=== PATIENT | male | born 1970 ===

== ENCOUNTER → 2020-12-27 13:40 | Outpatient (BNVA) | payer OTHER, SELFPAY | PROVIDERS: PCP Internal Medicine; Visit Provider Urology ==

== ENCOUNTER 2023-11-11 10:50 | Outpatient (REF) | payer OTHER, SELFPAY ==
[2023-11-11 13:37] LABS: Hematocrit 44.3 % (42.0-52.0); Mean Corpuscular HGB Conc 33.9 g/dl (31.0-36.0); Mean Corpuscular Hemoglobin 32.3 pg (27.0-33.0); Mean Corpuscular Volume 95.3 fL (80.0-98.0); Mean Platelet Volume 11.3 fL (9.4-12.4); Platelet Count 178 X10*3/uL (160-400); Red Blood Count 4.65 X10*6/uL (4.60-5.80); White Blood Count 9.6 X10*3/uL (4.8-10.8)
[2023-11-16 09:18] LABS: Testosterone, Free 17.7 pg/mL (35.0-155.0); Testosterone, Total 157 ng/dL (250-1100)
== END 2023-11-11 10:51 | disposition home or self-care (01) ==
LOC: HO.HMGCLDS 10:50
PROVIDERS: PCP Internal Medicine; Visit Provider Urology
DX: E29.1 Testicular hypofunction (principal)
CPT/HCPCS: 36415; 84153; 84402; 84403; 85027

== ENCOUNTER 2023-11-18 10:38 | Outpatient (AMB) | payer OTHER, SELFPAY ==
--- NOTE | 2023-11-18 10:40 | MHC.OFFVIS ---
Intake Intake Visit Reasons: LABS Follow Up(set)Confirmed Intake Note: Patient is Present for Telephone Follow Up labs Urology Med: Testosterone Antibiotic Allergy: None Blood Thinner: None Confirmed Pharmacy: [facility] Allergies No Known Allergies [No Known Allergies*] Allergy (Verified 11/18/23 10:41) Medication List - Last Reconciled 11/18/23 by Ean Davis MD insulin syringe-needle U-100 (BD Insulin Syringe) As directed weekly needle (disp) 18 G (BD Regular Bevel Boomer) As directed needle (disp) 18 G (BD Regular Bevel Boomer) To draw up medication needle (disp) 22 G For testosterone injection weekly needle (disp) 22 G For testosterone injection weekly syringe (disposable) (BD Luer-Ophelia Syringe) Testosterone injection weekly syringe (disposable) (BD Luer-Ophelia Syringe) Testosterone injection weekly testosterone cypionate (Depo-Testosterone) 80 mg (0.4 mL) subcut QWEEK 4 weeks HPI HPI Comments History of Present Illness Details Migue Blanca is a very pleasant male. They are a patient of Dr Valero. They are seen in the office today for the following urologic conditions. - hypogonadism Telemedicine Evaluation 15 min Consultation [employer] [place] Video Refills provided Six-month follow-up Six-month follow-up On subcutaneous testosterone 11/15 T 157, P 0.5 44 Hypogonadism: 80 units weekly subq Testicular cancer 2013 Lab stable when he continues to use medication. 40 units per week. He presents today for further evaluation and followup of his hypogonadism. Initial symptoms include erectile dysfunction Yes decreased libido Yes change in mood/depression Yes in muscle size/strength Yes increased fatigue/malaise Yes increased abdominal fat No tender breasts/gynecomastia No hair loss No osteopenia No The onset of symptoms has been gradual. Associate conditions include obstructive sleep apnea No CAD No obesity No stress - financial, family, employment No heavy alcohol or illicit drug use No Laboratory results baseline 08/08 T 125, free testosterone, 36 after stim - T 340, , calculated bioavailable testosterone L 77, , SHBG 78 10/09 on clomid , testosterone 274, SHBG 101 03/09 on T 0.25 , testosterone 297, , SHBG 50, low free T 05/09 on 0.3cc BIW - T 631 10/10 T 621 PSA 0.7, Hct 59 04/09 T 90 12/09 T 245, 12/10 T 77, PSA 0.3 Current therapy includes 10/09 SERM - clomiphene - could not afford but worked 11/10 , injectable exogenous testosterone. Response to therapy has been improved. Diagnosis based on history and laboratory results Hypogonadotrophic Hypogonadism. Risk, benefits and alternatives to therapy were discussed regarding the use and timing of prescribed medications. Pertinent side effects and interactions for medications were highlighted and adherence emphasized [facility] Medical History Erectile dysfunction due to arterial insufficiency Hypogonadism in male Seminoma of descended testis Testicular cancer Surgical History S/P orchiectomy Review of Systems Const All systems reviewed & are unremarkable except as noted in HPI and below Reports no additional complaints Resp Reports no additional complaints GI Reports no additional complaints Reports as per HPI Musc Reports no additional complaints Physical Exam Telemedicine evaluation Appropriate responses Regular breathing rate and rhythm HEENT Head: Yes normal to inspection Ears: hearing grossly normal bilaterally Eyes General: appearance normal, both eyes and all related structures Neck Neck: Yes normal visual inspection Chest Chest palpation & inspection: normal inspection of the chest Resp Effort & Inspection: normal respiratory effort and able to speak in complete sentences Assessment & Plan Assessment & Plan (1) Hypogonadism in male: Code(s): E29.1 - Testicular hypofunction Plan Six month follow-up labs Medications: New syringe (disposable) (BD Luer-Ophelia Syringe) Testosterone injection weekly 30 ea 0RF E29.1 - Testicular hypofunction, E34.9 - Endocrine disorder, unspecified needle (disp) 18 G (BD Regular Bevel Boomer) As directed 30 ea 0RF E29.1 - Testicular hypofunction needle (disp) 18 G (BD Regular Bevel Boomer) To draw up medication 30 ea 0RF E29.1 - Testicular hypofunction needle (disp) 22 G For testosterone injection weekly 30 ea 0RF E29.1 - Testicular hypofunction, E34.9 - Endocrine disorder, unspecified needle (disp) 22 G For testosterone injection weekly 30 ea 0RF E29.1 - Testicular hypofunction, E34.9 - Endocrine disorder, unspecified syringe (disposable) (BD Luer-Ophelia Syringe) Testosterone injection weekly 30 ea 0RF E29.1 - Testicular hypofunction, E34.9 - Endocrine disorder, unspecified Refilled testosterone cypionate (Depo-Testosterone) dispose of bottle after single use 80 mg (0.4 mL) subcut QWEEK 4 weeks 4 mL 5RF [id number] Patient Instructions: Imaging studies, laboratory and physical exam results were discussed and reviewed in detail. No major barriers to patient understanding were identified. An opportunity to ask questions regarding the treatment plan was provided. All questions were answered. The patient expressed understanding and agreement with the above treatment plan. The patient is aware they should contact our office by phone for worsening of their current condition or the appearance of new urologic symptoms. Compliance is encouraged with any medications and followup testing that is ordered. It is a privilege to participate in the urologic care of your patient. If you have any questions or concerns regarding treatment for the above conditions, or other urologic issues, please do not hesitate to contact me. The office telephone contact is [phone]. This note is constructed using voice recognition software. While every effort has been made to ensure accuracy head of ethics and compliance errors may have been included. Yours sincerely, Dr Ean Davis MD, [facility] - Urology Providers of Expert, Compassionate Care for the Genitourinary System Telehealth Telehealth Location of provider rendering services: practice address Location of patient: address on file Patient Identification confirmed using: Name, : Yes Telehealth method: video Patient verbally consented to treatment: Yes Patient verbally consented to billing insurance company: Yes Patient informed of any privacy concerns related to visit: Yes Coding Level of Care Code Tele Est Pt Level 3 (28865) Diagnoses Hypogonadism in male E29.1
== END 2023-11-18 11:41 | disposition home or self-care (01) ==
LOC: HO.HUSH 10:39
PROVIDERS: PCP Internal Medicine; Visit Provider Urology
DX: E29.1 Testicular hypofunction (principal)
CPT/HCPCS: 99213

== ENCOUNTER → 2023-11-18 10:38 | Outpatient (BNVA) | payer OTHER, SELFPAY | PROVIDERS: PCP Internal Medicine; Visit Provider Urology ==

== ENCOUNTER 2024-06-17 10:45 | Outpatient (REF) | payer OTHER, SELFPAY ==
[2024-06-17 13:11] LABS: PSA,Total (Free>4and<10) 1.04 ng/mL (0.00-4.00)
[2024-06-21 21:29] LABS: Testosterone, Free 20.8 pg/mL (35.0-155.0); Testosterone, Total 302 ng/dL (250-1100)
== END 2024-06-17 10:46 | disposition home or self-care (01) ==
LOC: HO.LAB 10:45
PROVIDERS: PCP Internal Medicine; Visit Provider Urology
DX: E29.1 Testicular hypofunction (principal); Z12.5 Encounter for screening for malignant neoplasm of prostate
CPT/HCPCS: 36415; 84153; 84402; 84403

== ENCOUNTER 2024-06-23 09:19 | Outpatient (AMB) | payer OTHER, SELFPAY ==
--- NOTE | 2024-06-23 09:22 | A.OFFVIS_ITS ---
Intake Visit Reasons: PSA/Testosterone Follow Up(Testo Pending) Intake Note: Patient is present for PSA/TESOSTERONE F/U Urology Medication:TESTOSTERONE Antibiotic Allergy:NONE Blood Thinner:NONE Strap Buckler Machine Required: No Allergies No Known Allergies [No Known Allergies*] Allergy (Verified 06/23/24 09:23) Medication List - Last Reconciled 06/23/24 by Ean Davis MD insulin syringe-needle U-100 (BD Insulin Syringe) As directed weekly needle (disp) 18 G (BD Regular Bevel Pomona) As directed needle (disp) 18 G (BD Regular Bevel Pomona) To draw up medication needle (disp) 22 G For testosterone injection weekly needle (disp) 22 G For testosterone injection weekly safety needles (BD SafetyGlide Needle) As directed syringe (disposable) (BD Luer-Ophelia Syringe) Testosterone injection weekly syringe (disposable) (BD Luer-Ophelia Syringe) Testosterone injection weekly testosterone cypionate (Depo-Testosterone) 80 mg (0.4 mL) subcut QWEEK 4 weeks HPI Comments Details: Migue Blanca is a very pleasant male. They are a patient of Dr Valero. They are seen in the office today for the following urologic conditions. - hypogonadism Six-month follow-up On subcutaneous testosterone 11/15 T 157, P 0.5 44, 06/15 300 Refill medications Six-month follow-up Hypogonadism: 80 units weekly subq Testicular cancer 2014 Lab stable when he continues to use medication. 40 units per week. He presents today for further evaluation and followup of his hypogonadism. Initial symptoms include erectile dysfunction Yes decreased libido Yes change in mood/depression Yes in muscle size/strength Yes increased fatigue/malaise Yes increased abdominal fat No tender breasts/gynecomastia No hair loss No osteopenia No The onset of symptoms has been gradual. Associate conditions include obstructive sleep apnea No CAD No obesity No stress - financial, family, employment No heavy alcohol or illicit drug use No Laboratory results baseline 08/08 T 125, free testosterone, 36 after stim - T 340, , calculated bioavailable testosterone L 77, , SHBG 78 10/09 on clomid , testosterone 274, SHBG 101 03/09 on T 0.25 , testosterone 297, , SHBG 50, low free T 05/09 on 0.3cc BIW - T 631 10/10 T 621 PSA 0.7, Hct 59 04/09 T 90 12/09 T 245, 12/10 T 77, PSA 0.3 Current therapy includes 10/09 SERM - clomiphene - could not afford but worked 11/10 , injectable exogenous testosterone. Response to therapy has been improved. Diagnosis based on history and laboratory results Hypogonadotrophic Hypogonadism. Risk, benefits and alternatives to therapy were discussed regarding the use and timing of prescribed medications. Pertinent side effects and interactions for medications were highlighted and adherence emphasized [facility] Medical History Erectile dysfunction due to arterial insufficiency Hypogonadism in male Seminoma of descended testis Testicular cancer Surgical History S/P orchiectomy Review of Systems Const Denies chills and Denies fever(s) Card Reports no additional complaints and Denies syncope Resp Denies cough GI Denies abdominal pain and Denies heartburn Reports as per HPI and Denies change in libido Neuro Denies syncope Psych Denies change in libido Endo Denies change in libido Physical Exam Const General: cooperative, healthy appearing, comfortable and no acute distress Orientation/consciousness: patient oriented x3 HEENT Face and sinus: Yes normal facial exam Mouth: moist mucous membranes Neck Neck: Yes normal visual inspection, Yes full ROM and Yes trachea midline Chest Chest palpation & inspection: normal inspection of the chest Resp Effort & Inspection: normal respiratory effort, able to speak in complete sentences and no respiratory distress GI Inspection: Yes normal to inspection Back/Spine/Pelvis Cervical Spine: normal cervical lordosis Thoracic/Lumbar Spine: thoracic and lumbar spine normal to inspection Skin General skin exam: no rashes or lesions noted Neuro General: patient oriented x3, gait normal, tone normal and moves all extremities Extrem General: Yes normal to inspection and Yes capillary refill normal Assessment & Plan Assessment & Plan (1) Hypogonadism in male: Code(s): E29.1 - Testicular hypofunction Category: Medical (2) Erectile dysfunction due to arterial insufficiency: Code(s): N52.01 - Erectile dysfunction due to arterial insufficiency Category: Medical Plan Six-month follow-up lab work Orders: Orders Prostate Specific Antigen 6 Months E29.1 - Testicular hypofunction Testosterone, Total 6 Months E29.1 - Testicular hypofunction Complete Blood Count no Diff 6 Months E29.1 - Testicular hypofunction Patient Instructions: Imaging studies, laboratory and physical exam results were discussed and reviewed in detail. No major barriers to patient understanding were identified. An opportunity to ask questions regarding the treatment plan was provided. All questions were answered. The patient expressed understanding and agreement with the above treatment plan. The patient is aware they should contact our office by phone for worsening of their current condition or the appearance of new urologic symptoms. Compliance is encouraged with any medications and followup testing that is ordered. It is a privilege to participate in the urologic care of your patient. If you have any questions or concerns regarding treatment for the above conditions, or other urologic issues, please do not hesitate to contact me. The office telephone contact is [phone]. This note is constructed using voice recognition software. While every effort has been made to ensure accuracy acoustical installer errors may have been included. Yours sincerely, Dr Ean Davis MD, [facility] - Urology Providers of Expert, Compassionate Care for the Genitourinary System Coding Level of Care Code Est Pt Level 3 (00930) Diagnoses Hypogonadism in male E29.1 Erectile dysfunction due to arterial insufficiency N52.01
== END 2024-06-23 09:55 | disposition home or self-care (01) ==
LOC: HO.HUSH 09:19
PROVIDERS: PCP Internal Medicine; Visit Provider Urology
DX: E29.1 Testicular hypofunction (principal); N52.01 Erectile dysfunction due to arterial insufficiency
CPT/HCPCS: 99213

== ENCOUNTER → 2024-06-23 09:19 | Outpatient (BNVA) | payer OTHER, SELFPAY | PROVIDERS: PCP Internal Medicine; Visit Provider Urology | DX: E29.1 Testicular hypofunction (principal); N52.01 Erectile dysfunction due to arterial insufficiency | CPT/HCPCS: 99212 ==

== ENCOUNTER 2024-12-20 12:52 | Outpatient (REF) | payer OTHER, SELFPAY ==
[2024-12-20 13:12] LABS: Hematocrit 47.7 % (42.0-52.0); Hemoglobin 15.8 g/dl (14.0-18.0); Mean Corpuscular HGB Conc 33.1 g/dl (31.0-36.0); Mean Corpuscular Hemoglobin 31.7 pg (27.0-33.0); Mean Corpuscular Volume 95.6 fL (80.0-98.0); Mean Platelet Volume 10.6 fL (9.4-12.4); Platelet Count 190 X10*3/uL (160-400); Red Blood Count 4.99 X10*6/uL (4.60-5.80); Red Cell Distribution Width 13.5 % (11.0-16.0); White Blood Count 7.6 X10*3/uL (4.8-10.8)
--- OUTSIDE RECORDS SUMMARY | 2024-12-20 14:26 | XMS_ITS | Clinical Summary ---
Author Organization [facility] Address [address] [place] [address] [address] [place] [address] Care Team Providers Care Engine Dynamometer Tester Name Role Phone Unavailable Primary Care Provider Unavailabl e Allergies No known active allergies Medications ibuprofen 600 MG tabletIndication s:Dental abscess Take 1 tablet (600 mg) by mouth every 6 (six) hours if needed for mild pain for up to 20 doses. 20 tablet 04/14/2024 Active Active Problems No known active problems Social History Tobacco Use Types Packs/Day Years Used Date Smoking Tobacco: Every Day Cigarettes Smokeless Tobacco: Never Tobacco Cessation:Ready to Q uit: Not Asked; Counseling Given: Not Answered Alcohol Use Standard Drinks/Week Comments Never 0 (1 standard drink = 0.6 oz pur e alcohol) Sex and Gender Information Value Date Recorded Sex Assigned at Male 07/22/2022 10:14 AM EDT Legal Sex Male 10:14 AM EDT Gender Identity Male 07/22/2022 10:14 AM EDT Sexual Orientation Straight 07/22/2022 10 :14 AM EDT Last Filed Vital Signs Vital Sign Reading Time Taken Comments Blood Pressure 90/60 05/07/2024 8:06 AM EDT Pulse - - Temperature - - Respiratory Rate - - Oxygen Saturation - - Inhaled Oxygen Concentration - - Weight - - Height - - Body Mass Index - - Plan of Treatment Health Maintenance Due Date Last Done Comments CT Colonography 1969 Colonoscopy 1969 Colorectal Cancer Screening 1969 Dental Prophylaxis 1969 Dental X-Ray: Bitewings 1969 Depression Screening 1969 FIT DNA/Cologuard 1969 FIT 1969 FOBT 1969 HIV Screening 1969 Lipid Panel 1969 SDOH Screening 1969 Sigmoidoscopy 1969 Pneumococcal Vaccine: Pediatrics (0 to 5 Years) and At-Risk Patients (6 to 49) Years) (1 of 2 - PCV) 1975 Alcohol/Substance Use Screening 1981 Hepatitis C Screening 1987 Hepatitis B Vaccines (1 of 3 - 19+ 3-dose series) 01/24/1988 Pneumococcal Vaccine: 50+ Years (1 of 2 - PCV) 01/24/1988 Zoster Vaccines (1 of 2) 2019 COVID-19 Vaccine (2 - 2023-2 5 season) 2024 03/19/2021 Influenza Vaccine (#1) 2024 DTaP/Tdap/Td Vaccines (2 - T d or Tdap) 06/07/2024 06/07/2014 Dental Oral Exam 10/16/2024 04/14/2024 Tobacco Screening 05/07/2025 05/07/2024 Dental X-Ray: Full Mouth 04/15/2027 024, 04/13/2018 RSV Patients and Patients Aged 60 years or older (1 - 1-dose 75+ series) 01/24/2044 HIB Vaccines Aged Out No longer eligi ble based on patient's age to complete this topic HPV Vaccines Aged Out No longer eligi ble based on patient's age to complete this topic Hepatitis A Vaccines Aged Out No long er eligible based on patient's age to complete this topic IPV Vaccines Aged Out No longer eligi ble based on patient's age to complete this topic Meningococcal Vaccine Aged Out No terese david eligible based on patient's age to complete this topic RSV under 20 months Aged Out No longe r eligible based on patient's age to complete this topic Rotavirus Vaccines Aged Out No longer eligible based on patient's age to complete this topic Procedures Procedure Name Priority Date/Time Associated Diagnosis Comments PANORAMIC RADIOGRAPHIC IMAGE Routine 04/14/2024 11:30 AM EDT Periodontal disease Dental abscess Severe dental caries COMPREHENSIVE ORAL EVALUATION - NEW OR ESTABLISHED PATIENT Routine 04/14/2024 11:30 AM EDT Periodontal disease Dental abscess Severe dental caries from Last 3 Months or Most Recently Relevant to Health Maintenance Insurance [facility] MEDICAID STAND ADULT
[2024-12-20 14:56] LABS: Prostate Specific Antigen 0.56 ng/mL (<0.05-4.0)
[2024-12-24 17:34] LABS: Testosterone, Total 1454 ng/dL (250-1100)
== END 2024-12-20 12:53 | disposition home or self-care (01) ==
LOC: HO.10HDL 12:52
PROVIDERS: Visit Provider Urology
DX: E29.1 Testicular hypofunction (principal)
CPT/HCPCS: 36415; 84153; 84403; 85027

== ENCOUNTER 2024-12-22 08:58 | Outpatient (AMB) | payer OTHER, SELFPAY ==
--- NOTE | 2024-12-22 08:58 | MHC.OFFVIS ---
Intake Visit Reasons: 6m/labs Intake Note: Patient is present for 6M/LABS Urology Medication:TESTOSTERONE Antibiotic Allergy:NONE Blood Thinner:NONE Child Custody Evaluator Required: No Allergies No Known Allergies [No Known Allergies*] Allergy (Verified 12/22/24 08:59) HPI Comments Details: Migue Blanca is a very pleasant male. They are a patient of Dr Valreo. They are seen in the office today for the following urologic conditions. - hypogonadism Telemedicine Evaluation 15 min Consultation [employer] Six-month follow-up On subcutaneous testosterone 11/15 T 157, P 0.5 44, 06/15 300, 12/14 T 300 - increase dose to 100units weekly Refill medications Six-month follow-up Hypogonadism: 100 units weekly subq Testicular cancer 2013 Lab stable when he continues to use medication. 40 units per week. He presents today for further evaluation and followup of his hypogonadism. Initial symptoms include erectile dysfunction Yes decreased libido Yes change in mood/depression Yes in muscle size/strength Yes increased fatigue/malaise Yes The onset of symptoms has been gradual. Associate conditions include obstructive sleep apnea No CAD No obesity No stress - financial, family, employment No heavy alcohol or illicit drug use No Laboratory results baseline 08/08 T 125, free testosterone, 36 after stim - T 340, , calculated bioavailable testosterone L 77, , SHBG 78 10/09 on clomid , testosterone 274, SHBG 101, 03/09 on T 0.25 , testosterone 297, , SHBG 50, low free T, 05/09 on 0.3cc BIW - T 631, 10/10 T 621 PSA 0.7, Hct 59, 04/09 T 90, 12/09 T 245, 12/10 T 77, PSA 0.3 Current therapy includes 10/09 SERM - clomiphene - could not afford but worked 11/10 , injectable exogenous testosterone. Response to therapy has been improved. Diagnosis based on history and laboratory results Hypogonadotrophic Hypogonadism. Risk, benefits and alternatives to therapy were discussed regarding the use and timing of prescribed medications. Pertinent side effects and interactions for medications were highlighted and adherence emphasized [facility] Medical History Erectile dysfunction due to arterial insufficiency Hypogonadism in male Seminoma of descended testis Testicular cancer Surgical History (Reviewed 11/18/23 @ 10:41 by FRANCY Thorne S/P orchiectomy Review of Systems Const All systems reviewed & are unremarkable except as noted in HPI and below Reports no additional complaints Resp Reports no additional complaints GI Reports no additional complaints Reports as per HPI Musc Reports no additional complaints Physical Exam Telemedicine evaluation Appropriate responses Regular breathing rate and rhythm HEENT Head: Yes normal to inspection Ears: hearing grossly normal bilaterally Eyes General: appearance normal, both eyes and all related structures Neck Neck: Yes normal visual inspection Chest Chest palpation & inspection: normal inspection of the chest Resp Effort & Inspection: normal respiratory effort and able to speak in complete sentences Telehealth Telehealth Location of provider rendering services: practice address Location of patient: address on file Patient Identification confirmed using: Name, : Yes Telehealth method: voice only Patient verbally consented to treatment: Yes Patient verbally consented to billing insurance company: Yes Patient informed of any privacy concerns related to visit: Yes Assessment & Plan Assessment & Plan (1) Hypogonadism in male: Code(s): E29.1 - Testicular hypofunction Category: Medical (2) Erectile dysfunction due to arterial insufficiency: Code(s): N52.01 - Erectile dysfunction due to arterial insufficiency Category: Medical (3) Seminoma of descended testis: Code(s): C62.10 - Malignant neoplasm of unspecified descended testis Category: Medical Plan Slight increase testosterone Orders: Orders Complete Blood Count no Diff 6 Months E29.1 - Testicular hypofunction Testosterone, Total 6 Months E29.1 - Testicular hypofunction Prostate Specific Antigen 6 Months E29.1 - Testicular hypofunction Medications: Changed From testosterone cypionate dispose of bottle after single use 80 mg (0.4 mL) subcut QWEEK 4 weeks 4 mL 5RF [id number] To testosterone cypionate (Depo-Testosterone) dispose of bottle after single use - increase to 0.5cc per week 100 mg (0.5 mL) subcut QWEEK 2 mL 5RF 4 weeks [id number] Patient Instructions: This note is constructed using voice recognition software. While every effort has been made to ensure accuracy manager philosophy errors may have been included. Imaging studies, laboratory and physical exam results were discussed and reviewed in detail. No major barriers to patient understanding were identified. An opportunity to ask questions regarding the treatment plan was provided. All questions were answered. The patient expressed understanding and agreement with the above treatment plan. The patient is aware they should contact our office by phone for worsening of their current condition or the appearance of new urologic symptoms. Compliance is encouraged with any medications and followup testing that is ordered. It is a privilege to participate in the urologic care of your patient. If you have any questions or concerns regarding treatment for the above conditions, or other urologic issues, please do not hesitate to contact me. The office telephone contact is [phone]. Sincerely, Dr Ean Davis MD, [facility] - Urology Compassionate Specialist Care for the Genitourinary System Coding Level of Care Code Tele Est Pt Level 4 (83569) Diagnoses Hypogonadism in male E29.1 Erectile dysfunction due to arterial insufficiency N52.01 Seminoma of descended testis C62.10
--- OUTSIDE RECORDS SUMMARY | 2024-12-22 09:42 | XMS_ITS | Clinical Summary ---
Author Organization [facility] Address [address] [place] [address] [address] [place] [address] Care Team Providers Care Director Case Management Name Role Phone Unavailable Primary Care Provider [...] Most Recently Relevant to Health Maintenance Insurance [facility] MEDICAID STAND ADULT
== END 2024-12-22 10:54 | disposition home or self-care (01) ==
LOC: HO.HUSH 08:58
PROVIDERS: PCP Internal Medicine; Visit Provider Urology
DX: E29.1 Testicular hypofunction (principal); N52.01 Erectile dysfunction due to arterial insufficiency; C62.10 Malignant neoplasm of unspecified descended testis
CPT/HCPCS: 99214

== ENCOUNTER → 2024-12-22 08:58 | Outpatient (BNVA) | payer OTHER, SELFPAY | PROVIDERS: PCP Internal Medicine; Visit Provider Urology ==

== ENCOUNTER 2025-05-02 12:01 | Outpatient (REF) | payer OTHER, SELFPAY ==
--- OUTSIDE RECORDS SUMMARY | 2025-05-02 12:29 | XMS_ITS ---
Author Name [facility] Organization Unknown Care Team Organization Name Specialty Phone Email Start Date End [facility] LINDSAY BONE Primary Care 07/30/2022 4
--- OUTSIDE RECORDS SUMMARY | 2025-05-02 12:29 | XMS_ITS | Clinical Summary ---
Author Organization [facility] Address [address] [place] [address] [address] [place] [address] Care Team Providers Care Invisible Braces Orthodontist Name Role Phone Unavailable Primary Care Provider [...] Panel 1969 SDOH Screening 1969 Sigmoidoscopy 1969 Disability Screening 1969 Alcohol/Substance Use Screening 1981 Hepatitis C Screening 1987 Hepatitis B Vaccines (1 of 3 - 19+ 3-dose series) 01/24/1988 Pneumococcal Vaccine: 50+ Years (1 of 2 - PCV) 01/24/1988 Zoster Vaccines (1 of 2) 2019 COVID-19 Vaccine (2 - 2023-2 5 season) 2024 03/19/2021 DTaP/Tdap/Td Vaccines (2 - T d or Tdap) 06/07/2024 06/07/2014 Dental Oral Exam 10/16/2024 04/14/2024 Tobacco Screening 05/07/2025 05/07/2024 Influenza Vaccine (#1) 2025 Dental X-Ray: Full Mouth 04/15/2027 024, 04/13/2018 [...] patient's age to complete this topic Meningococcal B Vaccine Aged Out No l onger eligible based on patient's age to complete [...] Most Recently Relevant to Health Maintenance Insurance [facility] MEDICAID STAND ADULT
[2025-05-02 13:44] LABS: Hematocrit 42.7 % (42.0-52.0); Hemoglobin 14.5 g/dl (14.0-18.0); Mean Corpuscular HGB Conc 34.0 g/dl (31.0-36.0); Mean Corpuscular Hemoglobin 31.4 pg (27.0-33.0); Mean Corpuscular Volume 92.4 fL (80.0-98.0); NRBC Abs Auto 0.000 X10*3/uL (0.0-0.012); NRBC Pct Auto 0.0 /100WBC (0.0-0.2); Platelet Count 169 X10*3/uL (160-400); Red Blood Count 4.62 X10*6/uL (4.60-5.80); White Blood Count 6.0 X10*3/uL (4.8-10.8)
[2025-05-02 14:11] LABS: Prostate Specific Antigen 0.41 ng/mL (<0.05-4.0)
== END 2025-05-02 12:02 | disposition home or self-care (01) ==
LOC: HO.10HDL 12:01
PROVIDERS: Visit Provider Urology
DX: E29.1 Testicular hypofunction (principal)
CPT/HCPCS: 36415; 84153; 84403; 85027

== ENCOUNTER 2025-05-20 11:07 | Outpatient (REF) | payer OTHER, SELFPAY ==
--- OUTSIDE RECORDS SUMMARY | 2025-05-20 11:50 | XMS_ITS | Clinical Summary ---
Author Organization [employer] Address [address] [place] [address] [address] [place] [address] Care Team Providers Care Gis Instructor Name Role Phone Unavailable Primary Care Provider [...]
== END 2025-05-20 11:08 | disposition home or self-care (01) ==
LOC: HO.10HDL 11:07
PROVIDERS: Visit Provider Urology
DX: E29.1 Testicular hypofunction (principal); N52.01 Erectile dysfunction due to arterial insufficiency
CPT/HCPCS: 36415; 84403

== ENCOUNTER 2025-06-24 08:17 | Outpatient (AMB) | payer OTHER, SELFPAY ==
--- NOTE | 2025-06-24 08:17 | MHC.OFFVIS ---
Intake Visit Reasons: 6m/ labs Intake Note: patient presents today for: 6m/labs urology medications: testosterone blood thinners: none labs done 05/20/25: PSA 0.41, t-testo 149 [employer] Car Required: No Accompanied by: Self / Same As Patient Allergies No Known Allergies (No Known Allergies*) Allergy (Verified 06/24/25 08:18) HPI Comments Details: Migue Blanca is a very pleasant male. He are a patient of Dr Valero. He is seen in the office today for the following urologic conditions. - hypogonadism Telemedicine Evaluation 15 min Consultation [employer] [place] Video Poor response to injectable testosterone appears to have poor absorption and inconsistent with injectables Non responded to topical testosterone Will try long-acting injectable insurance application for IV 11/15 T 157, P 0.5 44, 06/15 300, 12/14 T 300 - increase dose to 100 units weekly, 06/16 T150 Refill medications Six-month follow-up Given failure of topical and injectable recommend trial of Aveed Treatment Rationale for use of Aveed: Patient meets diagnostic criteria for chronic testosterone deficiency with persistent symptoms and confirmed low levels. After discussing treatment options, testosterone undecanoate (Aveed) is medically necessary based on the following: Improved compliance: Long-acting formulation eliminates adherence issues associated with daily gels or frequent injections Avoidance of transference risk associated with topical formulations Reduced injection burden vs. weekly or biweekly IM testosterone cypionate/enanthate Stable serum testosterone levels, reducing risk of mood swings, peak/trough effects REMS program adherence ensured through in[employer]ict customer support officer and monitoring for POME (pulmonary oil microembolism) Supporting Guidelines: [place] [employer] (AUA), 2018:?Testosterone therapy should be initiated only in men who have low testosterone levels and consistent symptoms. Long-acting injectable testosterone undecanoate is an acceptable formulation, especially in men who prefer fewer injections or have difficulty with adherence.? 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 40 units per week. He presents today for further evaluation and followup of his hypogonadism. Initial symptoms include erectile dysfunction Yes decreased libido Yes change in mood/depression Yes in muscle size/strength Yes increased fatigue/malaise Yes The onset of symptoms has been gradual. Associate conditions include obstructive sleep apnea No CAD No obesity No stress - financial, family, employment No heavy alcohol or illicit drug use No Laboratory results baseline 08/08 T 125, free testosterone, 36 after stim - T 340, , calculated bioavailable testosterone L 77, , SHBG 78 10/09 on clomid , testosterone 274, SHBG 101, 03/09 on T 0.25 , testosterone 297, , SHBG 50, low free T, 05/09 on 0.3cc BIW - T 631, 10/10 T 621 PSA 0.7, Hct 59, 04/09 T 90, 12/09 T 245, 12/10 T 77, PSA 0.3 Current therapy includes 10/09 SERM - clomiphene - could not afford but worked 11/10 , injectable exogenous testosterone. Response to therapy has been improved. Diagnosis based on history and laboratory results Hypogonadotrophic Hypogonadism. Risk, benefits and alternatives to therapy were discussed regarding the use and timing of prescribed medications. Pertinent side effects and interactions for medications were highlighted and adherence emphasized [facility] Medical History Erectile dysfunction due to arterial insufficiency Hypogonadism in male Seminoma of descended testis Testicular cancer Surgical History S/P orchiectomy Review of Systems Const All systems reviewed & are unremarkable except as noted in HPI and below Reports no additional complaints Resp Reports no additional complaints GI Reports no additional complaints Reports as per HPI Musc Reports no additional complaints Physical Exam Telemedicine evaluation Appropriate responses Regular breathing rate and rhythm HEENT Head: Yes normal to inspection Ears: hearing grossly normal bilaterally Eyes General: appearance normal, both eyes and all related structures Neck Neck: Yes normal visual inspection Chest Chest palpation & inspection: normal inspection of the chest Resp Effort & Inspection: normal respiratory effort and able to speak in complete sentences Telehealth Telehealth Telehealth Platform: [facility] Location of provider rendering services: practice address Location of patient: address on file Patient Identification confirmed using: Name, : Yes Telehealth method: video Patient verbally consented to treatment: Yes Patient verbally consented to billing insurance company: Yes Patient informed of any privacy concerns related to visit: Yes Minutes spent on Phone/Video with Pt.: 15 Assessment & Plan Assessment & Plan (1) Seminoma of descended testis: Code(s): C62.10 - Malignant neoplasm of unspecified descended testis Category: Medical (2) Erectile dysfunction due to arterial insufficiency: Code(s): N52.01 - Erectile dysfunction due to arterial insufficiency Category: Medical (3) Hypogonadism in male: Code(s): E29.1 - Testicular hypofunction Category: Medical Plan Trial Aveed Patient Instructions: This note is constructed using voice recognition software. While every effort has been made to ensure accuracy research laboratory manager errors may have been included. Imaging studies, laboratory and physical exam results were discussed and reviewed in detail. No major barriers to patient understanding were identified. An opportunity to ask questions regarding the treatment plan was provided. All questions were answered. The patient expressed understanding and agreement with the above treatment plan. The patient is aware they should contact our office by phone for worsening of their current condition or the appearance of new urologic symptoms. Compliance is encouraged with any medications and followup testing that is ordered. It is a privilege to participate in the urologic care of your patient. If you have any questions or concerns regarding treatment for the above conditions, or other urologic issues, please do not hesitate to contact me. The office telephone contact is [phone]. Sincerely, Dr Ean Davis MD, [facility] - Urology Compassionate Specialist Care for the Genitourinary System Coding Level of Care Code Tele Est Pt Level 3 (82637) Complex EM visit Add On G2211 Diagnoses Seminoma of descended testis C62.10 Erectile dysfunction due to arterial insufficiency N52.01 Hypogonadism in male E29.1
== END 2025-06-24 09:14 | disposition home or self-care (01) ==
LOC: HO.HUSH 08:17
PROVIDERS: PCP Internal Medicine; Visit Provider Urology
DX: C62.10 Malignant neoplasm of unspecified descended testis (principal); N52.01 Erectile dysfunction due to arterial insufficiency; E29.1 Testicular hypofunction
CPT/HCPCS: 99213